=== PATIENT | male | born 1975 | race African-American/Black ===

== ENCOUNTER 2017-07-07 17:55 | Emergency (ER) | payer OTHER ==
[~2017-07-07] VITALS: Ht 180.3 cm; Wt 92.1 kg
[2017-07-07 18:55] LABS: URINE SOURCE CLEAN CATCH
[2017-07-07 19:00] LABS: URINE APPEARANCE CLEAR; URINE BILIRUBIN NEG (NEG); URINE BLOOD NEG (NEG); URINE COLOR DK YELLOW; URINE GLUCOSE NEG (NEG); URINE KETONE NEG (NEG); URINE LEUKOCYTE ESTERASE 1+ (NEG); URINE NITRATE NEG (NEG); URINE PROTEIN NEG (NEG); URINE SPECIFIC GRAVITY 1.024 (1.003-1.035); URINE UROBILINOGEN 0.2 MG/DL (NEG)
[2017-07-07 19:04] LABS: CULTURE INDICATED? YES; URBCS1 AUWI 0-2 /[HPF] (0-2); URINE BACTERIA AUWI NEG (NEGATIVE); URINE SQUAMOUS EPITHELIAL CELL NONE SEEN /[HPF]
[2017-07-10 08:04] LABS: CHLAMYDIA TRACH Not Detected (Not Detected); N GONOR Not Detected (Not Detected)
[2017-08-21] MEDS ORDERED: HYDROCHLOROTHIA25 MG PO (02:12)
[2017-08-21] MEDS ORDERED: LISINOPRIL20 MG PO (02:13)
== END 2017-07-07 19:30 | disposition home or self-care (01) ==
LOC: CED 17:55 → CFTX 17:55
PROVIDERS: Physician Assistant
DX: N34.1 Nonspecific urethritis (principal); Z91.013 Allergy to seafood
CPT/HCPCS: 81003; 87086; 87491; 87591; 96372; 99283; J0696